=== PATIENT | male | born 1935 | race Caucasian/White ===

== ENCOUNTER 2018-09-27 10:55 | Inpatient (IN) | payer MEDICARE, MEDICAID ==
[~2018-09-27] VITALS: Ht 172.7 cm; Wt 90.9 kg
[2018-09-27] MEDS ORDERED: normal saline 1000ML IV soln IVB ONE (11:25)
[2018-09-27] MEDS ORDERED: LORazepam 2 mg/ml vial IM ONE (11:25)
[2018-09-27 11:41] LABS: CLARITY,URINE SLIGHTLY CLOUDY (Clear); COLOR,URINE YELLOW (Yellow); GLUCOSE, URINE 250 mg/dl (Neg); KETONES,URINE NEGATIVE (Neg); LEUKOCYTE ESTERASE ,URINE SMALL (Neg); NITRITES, URINE NEGATIVE (Neg); OCCULT BLOOD,URINE TRACE-INTACT (Neg); PROTEIN,URINE 100 mg/dl (Neg); UROBILINOGEN,URINE 0.2 E.U/dL (0.2-1.0)
--- NOTE | 2018-09-27 11:43 | NUR ---
LAB AT BEDSIDE UNABLE TO DRAW AT THIS TIME. PT. UNABLE TO SIT STILL. PT. UNABLE TO FOLLOW ANY COMANDS. AGGITATED AND RESTLESS.
[2018-09-27 11:44] LABS: UA COLLECTION TYPE VOIDED
[2018-09-27 12:04] LABS: YEAST MODERATE /HPF (NEGATIVE)
[2018-09-27 12:05] LABS: BACTERIA,URINE 3+ /HPF (Neg); SQUAMOUS EPITHELIAL CELL,UR MANY /LPF (FEW); WBC,URINE 20-30 /HPF (0-4)
[2018-09-27 12:06] LABS: RBC,URINE 0-2 /HPF (0-2)
--- NOTE | 2018-09-27 12:22 | NUR ---
Contact info: Grand daughter Lynne Barber [phone], Granddaughter Frances Mendoza [phone]. Lisbet Davenport [phone].
[2018-09-27 13:35] LABS: BASOPHILS % (AUTO) 0.4 % (0-1); EOSINOPHILS # (AUTO) 0.2 X10'3 (0-0.9); EOSINOPHILS % (AUTO) 2.4 % (0-6); HEMATOCRIT 45.4 % (42.0-52.0); LYMPHOCYTES # (AUTO) 1.4 X10'3 (1.1-4.8); LYMPHOCYTES % (AUTO) 18.6 % (21-51); MEAN CORPUSCULAR HEMOGLOBIN 33.3 PG (27.0-31.0); MEAN CORPUSCULAR VOLUME 100.9 FL (78-98); MEAN PLATELET VOLUME 6.9 FL (7.4-10.4); MONOCYTES # (AUTO) 0.5 X10'3 (0-0.9); MONOCYTES % (AUTO) 6.6 % (2-12); NEUTROPHILS # (AUTO) 5.6 X10'3 (1.8-7.7); PLATELET COUNT 256 X10'3 (140-440); RED CELL DISTRIBUTION WIDTH 13.1 % (11.5-14.5); WHITE BLOOD COUNT 7.7 X10'3 (4.5-11.0)
[2018-09-27 13:49] LABS: ALANINE AMINOTRANSFERASE 26 U/L (12-78); ALBUMIN 3.3 G/DL (3.4-5.0); ALBUMIN/GLOBULIN RATIO 0.9 (1.1-1.5); ALKALINE PHOSPHATASE 112 IU/L (46-116); ANION GAP 10 (8-16); ASPARTATE AMINO TRANSFERASE 15 U/L (10-37); BILIRUBIN,TOTAL 0.4 MG/DL (0.1-1.0); BLOOD UREA NITROGEN 26 MG/DL (7-18); BUN/CREATININE RATIO 27.7 (5.4-32.0); CALCIUM 9.3 MG/DL (8.5-10.1); CHLORIDE 102 MMOL/L (99-107); CREATININE 0.94 MG/DL (0.60-1.10); GLUCOSE 163 MG/DL (70-104); POTASSIUM 3.6 MMOL/L (3.5-5.1); SODIUM 138 MMOL/L (135-145); TOTAL CARBON DIOXIDE 26.2 MMOL/L (24-32); TOTAL PROTEIN 7.1 G/DL (6.4-8.2); eGFR 76 ML/MIN
[2018-09-27] MEDS ORDERED: CefTRIAXone 2gm/D5W 50ml 50 ML IV ONE (13:50)
[2018-09-27] MEDS ORDERED: OLANZapine **IM** 10 mg inj. IM ONE (13:50)
[2018-09-27 13:52] LABS: ETHANOL < 0.010 GM/DL (0.0-0.010); TROPONIN I < 0.04 NG/ML (0.0-0.05)
[2018-09-27] MEDS ORDERED: fluconazole-Diflucan 100MG/NS 50 ML IV SCH (14:00)
[2018-09-27] MEDS ORDERED: dextrose 50%-water 50ml dispensing syringe IV PRN ×2 (14:10)
[2018-09-27] MEDS ORDERED: ondansetron/PF 4mg/2ml inj IV PRN (14:10)
[2018-09-27] MEDS ORDERED: insulin Lispro (HumaLOG) vial - multi-dose SQ SCH (14:10)
[2018-09-27] MEDS ORDERED: magnesium 4gm in 100ml NS 100 ML IV PRN (14:10)
[2018-09-27] MEDS ORDERED: glucagon, human recombinant 1mg kit SUBCUT PRN (14:10)
[2018-09-27] MEDS ORDERED: magnesium 2GM in 50ml NS 50 ML IV PRN (14:10)
[2018-09-27] MEDS ORDERED: dextrose ORAL solution 15 GM/59 ML bottle PO PRN ×2 (14:10)
[2018-09-27] MEDS ORDERED: potassium Cl 40MEQ/NS 500ml 500 ML IV PRN ×2 (14:10)
[2018-09-27] MEDS ORDERED: HYDROcodone/acetaminophen 5mg/325mg tablet PO PRN (14:10)
[2018-09-27] MEDS ORDERED: mag hydrox/Alum hydrox/simeth 30ml oral suspension PO PRN (14:10)
[2018-09-27] MEDS ORDERED: MESSAGE TO PHARMACY PO ONE (14:10)
[2018-09-27] MEDS ORDERED: acetaminophen 325mg tablet PO PRN ×2 (14:10)
[2018-09-27] MEDS ORDERED: magnesium Cl slow-release 64mg tablet PO PRN (14:10)
[2018-09-27] MEDS ORDERED: potassium Cl 20 mEq SR tablet PO PRN ×2 (14:10)
[2018-09-27] MEDS ORDERED: morphine 4 MG/ML inj SYRINge IV PRN ×2 (14:10)
[2018-09-27] MEDS ORDERED: magnesium hydroxide 30ml (MOM) UD suspension PO PRN (14:10)
[2018-09-27] MEDS ORDERED: HYDROcodone/acetaminophen 10/325mg tab PO PRN (14:10)
[2018-09-27] MEDS ORDERED: LISI-604 PO (14:43)
[2018-09-27] MEDS ORDERED: ASPI81TA52 PO (14:43)
[2018-09-27] MEDS ORDERED: ATOR80TA PO (14:43)
[2018-09-27] MEDS ORDERED: POTA20TA19 PO (14:43)
[2018-09-27] MEDS ORDERED: HUM7525 SQ (14:43)
[2018-09-27] MEDS ORDERED: OMEP40CA37 PO (14:43)
[2018-09-27] MEDS ORDERED: HYDR-4353 PO (14:43)
[2018-09-27] MEDS ORDERED: SENN-162 PO (14:48)
[2018-09-27] MEDS ORDERED: DOCU250C86 PO (14:48)
[2018-09-27 14:59] LABS: HEMOGLOBIN A1C 10.4 % (4.5-6.2)
--- NOTE | 2018-09-27 18:37 | NUR ---
Dr Maldonado in to see patient, abg and sitter ordered. Tx to tele floor on hold for now
--- NOTE | 2018-09-27 19:10 | NUR ---
HOSPITALIST AT BEDSIDE WITH PATIENT TO DISCUSS PATIENT CONDITION AND TREATMENT PLAN. FAMILY IS VEHEMENTLY REQUESTING THE PATIENT BE MADE DNR/DNI. PER HOSPITALIST PT WILL CHANGED, AND IF BY MIDNIGHT TONIGHT THE PATIENT CONTINUES HIS AGGITATION DESPITE MEDICATIONS, THEN WE WILL TALK TO THE NIGHT TIME HOSPITALIST ABOUT PLACING THE PATIENT ON COMFORT CARE MEASURES. PRN MORPHINE 2 MG IV GIVEN TO PATIENT AT THIS TIME WHICH SEEMED TO HELP THE PATIENT GET SOME REST.
[2018-09-27] MEDS ORDERED: haloperidol lactate 5mg/ml inj IM ONE (19:25)
[2018-09-27] MEDS ORDERED: NYSTATIN CREAM - 30GM TUBE TP SCH (20:00)
[2018-09-27] MEDS ORDERED: lactobacillus rhamnosus 10,000 MMU CELLS/CAPSULE PO SCH (20:00)
[2018-09-27] MEDS ORDERED: haloperidol lactate 5mg/ml inj IM PRN (20:25)
[2018-09-27] MEDS ORDERED: morphine 10mg/0.5ml (conc. morphine) oral syringe PO PRN (20:45)
[2018-09-27] MEDS ORDERED: insulin glargine (Lantus) pen - multi-dose SQ SCH (21:00)
[2018-09-27] MEDS: morphine 10mg/ml inj. IV PRN (21:16)
--- NOTE | 2018-09-27 21:27 | NUR ---
COMFORT CART PLACED OUTSIDE OF ROOM, FAMILY AWARE, AWAITING ROOM
[2018-09-27] MEDS: morphine 10mg/0.5ml (conc. morphine) oral syringe PO PRN (23:55)
[2018-09-28 01:00] VITALS: BP 84/45
--- NOTE | 2018-09-28 07:01 | NUR ---
Problems reprioritized. Patient report given, questions answered & plan of care reviewed with NIURKA. Addendum: 09/28/18 at 0701 by Merlin Win RN Amended: Links added.
[2018-09-28 07:30] VITALS: BP 109/61
[2018-09-28] MEDS ORDERED: enoxaparin 40mg/0.4ml syringe SQ SCH (08:00)
[2018-09-28] MEDS ORDERED: CefTRIAXone 2gm/D5W 50ml 50 ML IV SCH (08:00)
[2018-09-28] MEDS: LORazepam 2 mg/ml vial IV PRN ×2 (08:47→22:01)
--- NOTE | 2018-09-28 15:22 | NUR ---
Consult: DM A1C 10.4. Pt admit for confusion UTI, Sepsis. Pt is A/O x 3, encephalopathic,and noted to be agitated. Pt is now on comfort care, being put on restraints and is refusing meals and medications. Pt previously CHO control but has been advanced to Regular diet due to comfort care. DM ed not appropriate at this time. No known bowel movement. Will continue to follow. Rec: 1. Monitor for bowel care per comfort care protocol Addendum: 09/28/18 at [address] Amended: Links added. Addendum: 09/28/18 at [address] I have reviewed and approve of note by Physical Fitness Teacher. Ana Luna RD
--- NOTE | 2018-09-28 18:43 | NUR ---
Problems reprioritized. Patient report given, questions answered & plan of care reviewed with FELICIA RODRIGUEZ.
[2018-09-28 20:00] VITALS: BP 103/50
--- NOTE | 2018-09-28 23:06 | NUR ---
Patient in room [facility] 354. I have received report from FELICIA Middleton and had the opportunity to ask questions and assume patient care. Addendum: 09/28/18 at 2307 by Jael Esteban RN Amended: Links added.
--- NOTE | 2018-09-28 23:41 | NUR ---
pt states yes to pain but unable to give numeric value to pain. Repositioned pt. for comfort. pt. declined pain med at this time. Addendum: 09/28/18 at 2342 by Jael Esteban RN Amended: Links added.
--- NOTE | 2018-09-29 06:33 | NUR ---
Problems reprioritized. Patient report given, questions answered & plan of care reviewed with FELICIA Levy. Addendum: 09/29/18 at 0633 by Jael Esteban RN Amended: Links added.
[2018-09-29 07:00] VITALS: BP 111/70
--- NOTE | 2018-09-29 08:48 | NUR ---
rounded on pt, family at bedside. spoke with grandson and let him know that his sister callled at 0820. He will text her with an update for me
[2018-09-29] MEDS: morphine 10mg/0.5ml (conc. morphine) oral syringe PO PRN ×3 (11:28→21:03)
[2018-09-29] MEDS: LORazepam 2 mg/ml vial IV PRN (15:11)
[2018-09-29] MEDS ORDERED: LORazepam 0.5 MG tablet PO PRN (15:40)
[2018-09-29 18:00] VITALS: BP 124/71
--- NOTE | 2018-09-29 18:10 | NUR ---
Patient in room [facility] 354. I have received report from Jennifer DUARTE and had the opportunity to ask questions and assume patient care.
--- NOTE | 2018-09-29 22:30 | NUR ---
pt called me in to the room to discuss comfort care and starting the pt on fluids. the pt's granddaughter is concerned about dehydration. educated pt on comfort care and said we can offer fluids as the pt is awake. 2044 pt had me talk to her sister on the phone. Sister yelling, cussing, and threatening. She was screaming that this is inhuman and that "this is not what she thought the care would be." She also stated the "she will trang" and that she will "call 911 and have him transferred to another hospital." [address] Cage aware of the situation and he is unable to come and discuss with the family and that it will need to be addressed in the morning. However, Dr. Cage did give new orders to start fluids. Oxygen was also placed on the pt because he is normally on 3L at home. The sister from the phone call was able to get ahold of the nursing house mover supervisor and he is aware of the situation. 2229 IV was started by BUSINESS SOLUTIONS CONSULTANT. IVF infusing. Nursing house mover supervisor was in the room educating the granddaughter about comfort care. Called Dr. Cage concerning the pt's fever and that the family wants Antibiotics. new orders given. will continue to monitor.
[2018-09-29] MEDS ORDERED: acetaminophen 120MG suppository, rectal RC PRN (22:35)
[2018-09-29] MEDS ORDERED: acetaminophen 325mg tablet PO PRN (22:35)
[2018-09-29] MEDS ORDERED: CefTRIAXone 2gm/D5W 50ml 50 ML IV SCH (23:00)
[2018-09-29] MEDS: dextrose 5%-normal saline 1,000 ML IV SCH (23:08)
[2018-09-29] MEDS: morphine 10mg/ml inj. IV PRN (23:31)
[2018-09-29] MEDS: CefTRIAXone 2gm/D5W 50ml 50 ML IV SCH (23:53)
[2018-09-30 01:00] VITALS: BP 145/81
--- NOTE | 2018-09-30 06:30 | NUR ---
Patient in room [facility] 354. I have received report from FELICIA TAO and had the opportunity to ask questions and assume patient care.
--- NOTE | 2018-09-30 06:41 | NUR ---
Problems reprioritized. Patient report given, questions answered & plan of care reviewed with Nyasia DUARTE.
[2018-09-30 08:00] VITALS: BP 130/75
[2018-09-30] MEDS: CefTRIAXone 2gm/D5W 50ml 50 ML IV SCH (08:36)
[2018-09-30] MEDS: morphine 10mg/ml inj. IV PRN (08:42)
[2018-09-30] MEDS: dextrose 5%-normal saline 1,000 ML IV SCH (17:35)
[2018-09-30 18:00] VITALS: BP 98/55
--- NOTE | 2018-09-30 18:53 | NUR ---
Patient in room [facility] 354. I have received report from Nyasia DUARTE and had the opportunity to ask questions and assume patient care.
--- NOTE | 2018-09-30 19:06 | NUR ---
Problems reprioritized. Patient report given, questions answered & plan of care reviewed with FELICIA TAO.
[2018-09-30] MEDS: lactobacillus rhamnosus 10,000 MMU CELLS/CAPSULE PO SCH (19:30)
--- NOTE | 2018-09-30 20:30 | NUR ---
Dr. Mack called asking about the pt. Dr. Mack updated about the pt's status. He was A/O having conversations with staff. Temperature of 100.1 axillary. Pt eating bites of food and drinking water. Dr. Mack asked for the family's number to address pt's code status and plan of care. will continue to monitor.
--- NOTE | 2018-09-30 21:10 | NUR ---
Family at bedside. Granddaughter Lynne received a phone call from Dr. Rajput. will continue to monitor.
[2018-09-30] MEDS: polyethylene glycol 3350 17gm powd pack PO SCH (21:20)
[2018-09-30] MEDS ORDERED: morphine 10mg/0.5ml (conc. morphine) oral syringe PO PRN (21:50)
[2018-09-30] MEDS ORDERED: haloperidol 1mg tablet PO PRN (21:50)
--- NOTE | 2018-09-30 22:00 | NUR ---
Spoke with Dr. Rajput. New orders given. Charge nurse, Ela, and myself both heard the orders to change the pt's code status. Dr. Rajput also informed me that he talked with pharmacy and new orders were given to them as well. will continue to monitor.
--- NOTE | 2018-09-30 22:02 | NUR ---
Spoke with Dr. Mack concerning comfort care status being discontinued and patient being DNR still, as a co-witness to code status order change along with Ave No RN.
[2018-09-30] MEDS: aspirin 325mg tablet PO SCH (22:10)
[2018-09-30] MEDS: atorvastatin 20mg tablet PO SCH (22:10)
[2018-09-30] MEDS: levoFLOXACIN-Levaquin 750MG/D5 150 ML IV SCH (22:11)
[2018-09-30] MEDS ORDERED: haloperidol 10mg/5ml UD oral solution PO PRN (22:41)
[2018-09-30] MEDS: morphine 2 MG/ML inj. syringe IV PRN (23:39)
[2018-10-01] VITALS: BP 97/63
[2018-10-01] MEDS: morphine 2 MG/ML inj. syringe IV PRN ×3 (04:39→22:35)
--- NOTE | 2018-10-01 06:36 | NUR ---
Patient in room [facility] 354. I have received report from FELICIA Dorado and had the opportunity to ask questions and assume patient care.
[2018-10-01 08:00] VITALS: BP 117/68
[2018-10-01] MEDS: lactobacillus rhamnosus 10,000 MMU CELLS/CAPSULE PO SCH ×2 (09:29→20:37)
[2018-10-01] MEDS: aspirin 325mg tablet PO SCH (09:29)
[2018-10-01 12:00] VITALS: BP 114/66
[2018-10-01] MEDS: nystatin 15 GM powder TP SCH ×3 (13:00→20:38)
[2018-10-01] MEDS ORDERED: sennosides 8.6mg tablet PO PRN (17:05)
[2018-10-01] MEDS ORDERED: docusate sod 250mg capsule PO PRN (17:05)
[2018-10-01] MEDS ORDERED: HYDROcodone/acetaminophen 10/325mg tab PO PRN (17:05)
[2018-10-01] MEDS ORDERED: mag hydrox/Alum hydrox/simeth 30ml oral suspension PO PRN (17:10)
[2018-10-01] MEDS ORDERED: acetaminophen 325mg tablet PO PRN (17:10)
[2018-10-01] MEDS ORDERED: dextrose 50%-water 50ml dispensing syringe IV PRN ×2 (17:10)
[2018-10-01] MEDS ORDERED: potassium Cl 20 mEq SR tablet PO PRN ×2 (17:10)
[2018-10-01] MEDS ORDERED: dextrose ORAL solution 15 GM/59 ML bottle PO PRN ×2 (17:10)
[2018-10-01] MEDS ORDERED: magnesium hydroxide 30ml (MOM) UD suspension PO PRN (17:10)
[2018-10-01] MEDS ORDERED: MESSAGE TO PHARMACY PO ONE (17:10)
[2018-10-01] MEDS ORDERED: ondansetron/PF 4mg/2ml inj IV PRN (17:10)
[2018-10-01] MEDS ORDERED: potassium Cl 40MEQ/NS 500ml 500 ML IV PRN ×2 (17:10)
[2018-10-01] MEDS ORDERED: glucagon, human recombinant 1mg kit SUBCUT PRN (17:10)
[2018-10-01] MEDS ORDERED: magnesium Cl slow-release 64mg tablet PO PRN (17:10)
[2018-10-01] MEDS ORDERED: magnesium 4gm in 100ml NS 100 ML IV PRN (17:10)
[2018-10-01] MEDS ORDERED: magnesium 2GM in 50ml NS 50 ML IV PRN (17:10)
[2018-10-01] MEDS: potassium Cl 20 mEq SR tablet PO SCH (17:57)
--- NOTE | 2018-10-01 18:18 | NUR ---
Problems reprioritized. Patient report given, questions answered & plan of care reviewed with FELICIA Moore.
--- NOTE | 2018-10-01 18:43 | NUR ---
Received report from Yudith DUARTE pt is awake eating dinner, in no apparent distress, F/C draining clear yellow urine.
[2018-10-01 19:00] VITALS: BP 120/81
[2018-10-01] MEDS: polyethylene glycol 3350 17gm powd pack PO SCH (20:37)
[2018-10-01] MEDS: atorvastatin 20mg tablet PO SCH (20:37)
[2018-10-01] MEDS: insulin glargine (Lantus) pen - multi-dose SQ SCH (21:00)
[2018-10-01] MEDS: insulin Lispro (HumaLOG) vial - multi-dose SQ SCH (21:06)
--- NOTE | 2018-10-01 21:38 | NUR ---
Spoke with Dr. Chiu regarding pts critical Blood Sugar of 473, I informed him that per our protocol the pt would be get insulin for the first time this visit and that he would only be getting 5 units I asked if he wanted him to get more he stated no, then I stated pt hadnt had GFR drawn since 09/27 and that it was 76 on that date if he still wanted me to give the lantus. HE stated to hold the lantus for tonight and have the daytime doctor follow up with.
[2018-10-01] MEDS: levoFLOXACIN-Levaquin 750MG/D5 150 ML IV SCH (22:35)
[2018-10-02] VITALS: BP 136/70
--- NOTE | 2018-10-02 05:38 | NUR ---
bladder scanned pt because he stated he felt as if he still had to pee, the bladder scan showed zero in bladder. I explained to the pt that the F/C can make it feel as if you have to pee and that it is a tube going into your bladder that is continuously draining urine out. I educated him that he is peeing and it is not going all over the floor or the bed but instead a collection bag. pt seemed ok with this answer and relaxed back into bed.
[2018-10-02 05:57] LABS: BASOPHILS % (AUTO) 0.1 % (0-1); EOSINOPHILS # (AUTO) 0.3 X10'3 (0-0.9); EOSINOPHILS % (AUTO) 5.8 % (0-6); HEMOGLOBIN 12.4 g/dl (14.0-17.9); LYMPHOCYTES # (AUTO) 0.9 X10'3 (1.1-4.8); LYMPHOCYTES % (AUTO) 16.5 % (21-51); MEAN CORPUSCULAR HEMOGLOBIN 33.5 PG (27.0-31.0); MEAN CORPUSCULAR HGB CONC 33.4 % (33.0-36.5); MEAN CORPUSCULAR VOLUME 100.2 FL (78-98); MEAN PLATELET VOLUME 7.6 FL (7.4-10.4); MONOCYTES # (AUTO) 0.2 X10'3 (0-0.9); MONOCYTES % (AUTO) 4.5 % (2-12); NEUTROPHILS # (AUTO) 3.9 X10'3 (1.8-7.7); NEUTROPHILS % (AUTO) 73.1 % (42-75); PLATELET COUNT 209 X10'3 (140-440); RED BLOOD COUNT 3.69 X10'6 (4.70-6.10); RED CELL DISTRIBUTION WIDTH 13.2 % (11.5-14.5); WHITE BLOOD COUNT 5.3 X10'3 (4.5-11.0)
[2018-10-02 06:07] LABS: ALBUMIN 2.4 G/DL (3.4-5.0); ANION GAP 9 (8-16); BLOOD UREA NITROGEN 24 MG/DL (7-18); CALCIUM 8.9 MG/DL (8.5-10.1); CHLORIDE 102 MMOL/L (99-107); GLUCOSE 325 MG/DL (70-104); MAGNESIUM 1.5 MG/DL (1.5-2.4); POTASSIUM 4.6 MMOL/L (3.5-5.1); SODIUM 136 MMOL/L (135-145); TOTAL CARBON DIOXIDE 25.2 MMOL/L (24-32); eGFR 58 ML/MIN
--- NOTE | 2018-10-02 06:19 | NUR ---
GAve report to Mandi DUARTE pt is resting in bed daughter at bedside, in no apparent distress, bed alarm on, call light and items of freq use within reach.
[2018-10-02 07:00] VITALS: BP 145/85
[2018-10-02] MEDS: K and/or MAG REPLACEMENT MC SCH (08:00)
[2018-10-02] MEDS: nystatin 15 GM powder TP SCH ×3 (08:00→21:00)
[2018-10-02] MEDS ORDERED: non-formulary drug (Omeprazole (Prilosec) 1 CAP) PO SCH (08:00)
[2018-10-02] MEDS: aspirin 325mg tablet PO SCH (08:58)
[2018-10-02] MEDS: lactobacillus rhamnosus 10,000 MMU CELLS/CAPSULE PO SCH ×2 (08:58→19:16)
[2018-10-02] MEDS: potassium Cl 20 mEq SR tablet PO SCH ×3 (08:58→19:17)
[2018-10-02] MEDS: pantoprazole 40mg Tablet.DR PO SCH (09:00)
[2018-10-02] MEDS: enoxaparin 40mg/0.4ml syringe SQ SCH (09:01)
[2018-10-02] MEDS: insulin Lispro (HumaLOG) vial - multi-dose SQ SCH ×3 (09:08→19:15)
[2018-10-02 11:00] VITALS: BP 132/87
--- NOTE | 2018-10-02 16:26 | NUR ---
pT FOUND TO BE EATING TATER TOTS AND DRESSING BROUGHT IN BY pT'S DAUGHTER . Explained to both the need to maintain carb control to avoid high blood glucose. Daughter indicates that he also ate prior to lunch accu check and was "lower, so it's OK". Reminded of elevated A1C of 10.4 being equivalent to a 250 bg on average, which is too high. Daughter states the reason its so high is. "His has dementia and forgets to give him his meds" Will continue to educate and monitor.
--- NOTE | 2018-10-02 18:39 | NUR ---
Problems reprioritized. Patient report given, questions answered & plan of care reviewed with FELICIA Dumont.
--- NOTE | 2018-10-02 18:51 | NUR ---
Patient in room [facility] 353. I have received report from Mandi DUARTE and had the opportunity to ask questions and assume patient care. Pt sitting up in bed with tv on. Just finished eating dinner. Pt has no signs of distress. Will continue to monitor.
[2018-10-02 20:00] VITALS: BP 112/60
[2018-10-02] MEDS: atorvastatin 20mg tablet PO SCH (21:24)
[2018-10-02] MEDS: insulin glargine (Lantus) pen - multi-dose SQ SCH (21:24)
[2018-10-02] MEDS: polyethylene glycol 3350 17gm powd pack PO SCH (21:26)
[2018-10-03] VITALS: BP 148/85
[2018-10-03] MEDS: levoFLOXACIN-Levaquin 750MG/D5 150 ML IV SCH (00:16)
[2018-10-03 06:04] LABS: BASOPHILS % (AUTO) 0.3 % (0-1); EOSINOPHILS # (AUTO) 0.5 X10'3 (0-0.9); EOSINOPHILS % (AUTO) 8.4 % (0-6); HEMATOCRIT 39.3 % (42.0-52.0); HEMOGLOBIN 13.1 g/dl (14.0-17.9); LYMPHOCYTES # (AUTO) 1.6 X10'3 (1.1-4.8); LYMPHOCYTES % (AUTO) 28.7 % (21-51); MEAN CORPUSCULAR HEMOGLOBIN 33.5 PG (27.0-31.0); MEAN CORPUSCULAR HGB CONC 33.4 % (33.0-36.5); MEAN CORPUSCULAR VOLUME 100.1 FL (78-98); MEAN PLATELET VOLUME 7.7 FL (7.4-10.4); MONOCYTES # (AUTO) 0.2 X10'3 (0-0.9); MONOCYTES % (AUTO) 4.1 % (2-12); NEUTROPHILS # (AUTO) 3.2 X10'3 (1.8-7.7); NEUTROPHILS % (AUTO) 58.5 % (42-75); PLATELET COUNT 258 X10'3 (140-440); RED BLOOD COUNT 3.93 X10'6 (4.70-6.10); RED CELL DISTRIBUTION WIDTH 13.9 % (11.5-14.5); WHITE BLOOD COUNT 5.5 X10'3 (4.5-11.0)
[2018-10-03 06:28] LABS: ALBUMIN 2.5 G/DL (3.4-5.0); ANION GAP 9 (8-16); BLOOD UREA NITROGEN 22 MG/DL (7-18); BUN/CREATININE RATIO 19.5 (5.4-32.0); CALCIUM 9.2 MG/DL (8.5-10.1); CHLORIDE 102 MMOL/L (99-107); CREATININE 1.13 MG/DL (0.60-1.10); GLUCOSE 304 MG/DL (70-104); MAGNESIUM 1.9 MG/DL (1.5-2.4); POTASSIUM 5.3 MMOL/L (3.5-5.1); SODIUM 136 MMOL/L (135-145); TOTAL CARBON DIOXIDE 24.8 MMOL/L (24-32); eGFR 62 ML/MIN
[2018-10-03 06:30] VITALS: BP 140/70
--- NOTE | 2018-10-03 06:30 | NUR ---
Patient in room [facility] 353. I have received report from FELICIA Dumont and had the opportunity to ask questions and assume patient care.
--- NOTE | 2018-10-03 06:47 | NUR ---
Problems reprioritized. Patient report given, questions answered & plan of care reviewed with Maia RN.
[2018-10-03] MEDS: K and/or MAG REPLACEMENT MC SCH (07:15)
[2018-10-03] MEDS: lactobacillus rhamnosus 10,000 MMU CELLS/CAPSULE PO SCH ×2 (07:53→20:28)
[2018-10-03] MEDS: aspirin 325mg tablet PO SCH (07:53)
[2018-10-03] MEDS: potassium Cl 20 mEq SR tablet PO SCH ×3 (07:53→17:39)
[2018-10-03] MEDS: enoxaparin 40mg/0.4ml syringe SQ SCH (07:53)
[2018-10-03] MEDS: pantoprazole 40mg Tablet.DR PO SCH (07:53)
[2018-10-03] MEDS: nystatin 15 GM powder TP SCH ×3 (07:54→20:27)
[2018-10-03] MEDS: insulin Lispro (HumaLOG) vial - multi-dose SQ SCH ×3 (09:27→18:48)
[2018-10-03] MEDS: levoFLOXACIN 500mg tablet PO SCH (11:28)
[2018-10-03 11:30] VITALS: BP 121/75
--- NOTE | 2018-10-03 18:37 | NUR ---
Patient in room [facility] 353. I have received report from Maia DUARTE and had the opportunity to ask questions and assume patient care. Pt was sitting up in bed, had just finished dinner and was being assisted by the aide to get his gown adjusted. Pt has no signs of distress. Will continue to monitor.
[2018-10-03 20:00] VITALS: BP 141/86
[2018-10-03] MEDS: polyethylene glycol 3350 17gm powd pack PO SCH (20:26)
[2018-10-03] MEDS: atorvastatin 20mg tablet PO SCH (20:28)
[2018-10-03] MEDS: insulin glargine (Lantus) pen - multi-dose SQ SCH (21:58)
[2018-10-04 05:53] LABS: BASOPHILS % (AUTO) 0.6 % (0-1); EOSINOPHILS # (AUTO) 0.3 X10'3 (0-0.9); EOSINOPHILS % (AUTO) 5.1 % (0-6); HEMATOCRIT 38.5 % (42.0-52.0); HEMOGLOBIN 12.9 g/dl (14.0-17.9); LYMPHOCYTES # (AUTO) 1.8 X10'3 (1.1-4.8); LYMPHOCYTES % (AUTO) 29.6 % (21-51); MEAN CORPUSCULAR HEMOGLOBIN 33.4 PG (27.0-31.0); MEAN CORPUSCULAR HGB CONC 33.4 % (33.0-36.5); MEAN PLATELET VOLUME 7.8 FL (7.4-10.4); MONOCYTES # (AUTO) 0.2 X10'3 (0-0.9); MONOCYTES % (AUTO) 3.2 % (2-12); NEUTROPHILS # (AUTO) 3.8 X10'3 (1.8-7.7); NEUTROPHILS % (AUTO) 61.5 % (42-75); PLATELET COUNT 255 X10'3 (140-440); RED BLOOD COUNT 3.85 X10'6 (4.70-6.10); RED CELL DISTRIBUTION WIDTH 13.5 % (11.5-14.5); WHITE BLOOD COUNT 6.1 X10'3 (4.5-11.0)
[2018-10-04 06:11] LABS: ALBUMIN 2.5 G/DL (3.4-5.0); ANION GAP 10 (8-16); BLOOD UREA NITROGEN 33 MG/DL (7-18); BUN/CREATININE RATIO 29.2 (5.4-32.0); CALCIUM 9.3 MG/DL (8.5-10.1); CHLORIDE 104 MMOL/L (99-107); CREATININE 1.13 MG/DL (0.60-1.10); GLUCOSE 264 MG/DL (70-104); MAGNESIUM 1.7 MG/DL (1.5-2.4); POTASSIUM 4.7 MMOL/L (3.5-5.1); SODIUM 139 MMOL/L (135-145); TOTAL CARBON DIOXIDE 25.2 MMOL/L (24-32); eGFR 62 ML/MIN
--- NOTE | 2018-10-04 06:31 | NUR ---
Problems reprioritized. Patient report given, questions answered & plan of care reviewed with Nessa DUARTE.
--- NOTE | 2018-10-04 06:32 | NUR ---
Patient in room [facility] 353. I have received report from OLGA LIDIA DUARTE and had the opportunity to ask questions and assume patient care.
[2018-10-04 07:00] VITALS: BP 182/65
[2018-10-04] MEDS: pantoprazole 40mg Tablet.DR PO SCH (07:32)
[2018-10-04] MEDS: lactobacillus rhamnosus 10,000 MMU CELLS/CAPSULE PO SCH (07:34)
[2018-10-04] MEDS: enoxaparin 40mg/0.4ml syringe SQ SCH (07:36)
[2018-10-04] MEDS: aspirin 325mg tablet PO SCH (07:36)
[2018-10-04] MEDS: nystatin 15 GM powder TP SCH ×2 (07:39→13:06)
[2018-10-04] MEDS: potassium Cl 20 mEq SR tablet PO SCH ×2 (07:40→13:00)
[2018-10-04] MEDS: K and/or MAG REPLACEMENT MC SCH (08:00)
[2018-10-04] MEDS: insulin Lispro (HumaLOG) vial - multi-dose SQ SCH ×2 (08:54→13:26)
[2018-10-04] MEDS ORDERED: ASPI-1 PO (10:24)
[2018-10-04] MEDS ORDERED: NYSPWD TP (10:24)
[2018-10-04] MEDS ORDERED: PANT40TA4 PO (10:24)
[2018-10-04] MEDS ORDERED: LEVO500T89 PO (10:24)
[2018-10-04] MEDS: levoFLOXACIN 500mg tablet PO SCH (11:17)
--- NOTE | 2018-10-04 11:42 | NUR ---
Reassessment: Pt diet has been changed to puree, heart healthy, CHO control diet. Per MD progress note pt is improving and tolerating current diet which is evident by documented 100% PO intake. Pt currently meeting nutrition needs. Pt code status has changed to DNR. Per documentation pt is confused and A/O x3, DM not appropriate at this time. LB 10/04/18 Rec: 1. Continue w/ Pureed, heart healthy, CHO control diet 2. Wt per rx 3. Monitor appropriateness for DM ed. Addendum: 10/04/18 at [address] Amended: Links added. Addendum: 10/04/18 at [address] I have reviewed and agree with note by Rough Rounder Machine. Ana Luna RD
[2018-10-04 12:06] VITALS: BP 110/60
--- NOTE | 2018-10-04 15:16 | NUR ---
patient seen by DR austin, is for discharge, [facility] given to Brittany DUARTE. patient appears stable for transfer. Transferred 1500hrs via [facility]
== END 2018-10-04 14:40 | DRG 871 ==
LOC: ER 10:55 → ED HOLD 14:07 → EDBEDREQSVC 22:15 → SUR 3N 22:20 → CMPBEDREQ 22:33 → SUR 3N 23:00
PROVIDERS: ADMIT Hospitalist; ATTEND Family Medicine
DX: A41.9 Sepsis, unspecified organism (principal); G92 Toxic encephalopathy; I63.9 Cerebral infarction, unspecified; N30.00 Acute cystitis without hematuria; E87.5 Hyperkalemia; E11.65 Type 2 diabetes mellitus with hyperglycemia; Z51.5 Encounter for palliative care; Z66 Do not resuscitate; E11.51 Type 2 diabetes mellitus with diabetic peripheral angiopathy without gangrene; I25.10 Atherosclerotic heart disease of native coronary artery without angina pectoris; I50.9 Heart failure, unspecified; J44.9 Chronic obstructive pulmonary disease, unspecified; Z79.4 Long term (current) use of insulin; I25.2 Old myocardial infarction; Z89.511 Acquired absence of right leg below knee; Z89.512 Acquired absence of left leg below knee; Z95.5 Presence of coronary angioplasty implant and graft; Z87.891 Personal history of nicotine dependence; Z88.0 Allergy status to penicillin
CPT/HCPCS: 36415; 70450; 71045; 80048; 80053; 80320; 81001; 82140; 82948; 83036; 83735; 83880; 84145; 84484; 85025; 87040; 87070; 93005; 93306; 93880; 96361; 96372; 96374; 97110; 97116; 97162; 97530; 99285; G0378; J0696; J1450; J1630; J1650; J1815; J1956; J2060; J2270; J7042